=== PATIENT | female | born 1980 | race Caucasian/White ===

== ENCOUNTER → 2018-06-30 | Outpatient (CLI) | payer SELFPAY ==
[~2018-06-30] MED LIST: DCS100C PO; HYDR-2890 PO; HYDR-3583 PO; IBP800T PO; LVT.088T PO; MULT-418 PO; Naproxen PO; OMEP20CA6 PO; PREN1TAB25 PO
--- NOTE | 2018-07-01 13:01 | Diagnostic Imaging Report ---
Indication: Screening. No prior examinations are available for comparison. This is a baseline exam. A 3-D tomosynthesis was also performed and reviewed. Findings: The fibroglandular tissue is heterogenously dense bilaterally. There is no dominant mass, spiculated lesion or suspicious calcification identified. A few benign lymph nodes in the axilla. Skin and nipples are unremarkable. Impression: Category 1 negative. ACR BI-RADS Category 1: Negative. Result letter will be mailed to the patient. Note: At least 10% of breast cancer is not imaged by mammography. Dictated by: Dictated on workstation # [id number]
== END ==
LOC: RAD 15:08
PROVIDERS: ATTEND Obstetrics & Gynecology
DX: Z12.31 Encounter for screening mammogram for malignant neoplasm of breast (principal)
CPT/HCPCS: 77067

== ENCOUNTER → 2020-01-19 | Outpatient (CLI) | payer OTHER | LOC: LAB 11:04 | PROVIDERS: ATTEND Nurse Practitioner Family | DX: N39.0 Urinary tract infection, site not specified (principal) | CPT/HCPCS: 87077; 87088 ==